=== PATIENT | female | born 1960 | race Caucasian/White ===

== ENCOUNTER 2018-07-09 16:19 | Outpatient (REF) | payer BC, SELFPAY ==
--- NOTE | 2018-07-09 15:00 | PAPFT_PTH ---
PATIENT: Mala Miles LOC: [facility] U#:[id number] AGE/SX: 57/F ROOM: RE07/09/[address]: Jessa Vazquez : 1960 BED: DIS: 07/09/2018 SPEC #: [id number] RECD: 07/10/18 12:48 STATUS: NESHA RENatalia #: [id number] ANGELA: 07/09/18 15:[address]: Jessa Vazquez DEPT: [facility] Cytology RECD BY: Spring Day ENTERED: 07/10/18 12:48 SP TYPE: PAPFT OTHR DR: Mahendra Mahmood Tissues: 1 - CX/ENDOCX FOR PAP SMEARS Procedures: PAP THIN PREP/UVM Screening Comments: [id number]
== END 2018-07-09 16:39 ==
LOC: NCHCN 16:19
PROVIDERS: PCP Internal Medicine; Visit Provider Nurse Practitioner Family
DX: Z12.4 Encounter for screening for malignant neoplasm of cervix (principal)
CPT/HCPCS: 88142

== ENCOUNTER 2020-12-03 19:23 | Emergency (ER) | payer OTHER, SELFPAY ==
[2020-12-03 19:29] VITALS: BP 200/100; PULSE 78; RESP 18; TEMP 37.3; O2SAT 100
--- NOTE | 2020-12-03 20:01 | ED.GENADUL_ITS ---
Discharge Plan Disposition Patient Disposition: HOME Condition: Stable Discharge Details Clinical Impression: COVID-19 Primary Care Provider: Mahendra Mahmood ED Provider: Spring Palafox Home Meds and New Rx's Prescriptions: No Action lisinopril 20 mg Tablet 20 mg PO DAILY RF: 0 Discharge Instructions Instructions: Viral Syndrome (ED) Additional Instructions: Continue to take your blood pressure medication as prescribed Recheck your blood pressure in 2 to 3 days Please isolate for the next 10 days After that you may follow-up with your blood pressure with your primary care physician Please return earlier with headache, shortness of breath, if your oxygen saturation dipped below 90%, or with any new or worsening complaints Discharge Data Discharge Date/Time-TO BE ENTERED AT DEPARTURE: 12/03/20 20:15 Medical Decision Making Patient is alert and oriented, of decisional capacity, pleasant in demeanor, vitals stable, mild hypertension at 167/93, likely anxiety component given recent diagnosis of COVID-19 despite being vaccinated Asymptomatic hypertension, will follow up with PCP after isolation., Should she become symptomatic, she is instructed to return immediately however oxygen saturation below 90%, I can instruct her to require a pulse oximeter unfortunately we do not have a pulse oximeter available for this patient She is instructed to require 1 With contrast patient understanding, discharged home with oxygen saturation 100%, room air, nontoxic, Medical Records Medical records reviewed: Yes I reviewed the patient's medical records. Lab Data Lab results reviewed: Yes I reviewed the patient's lab results. HPI General Mode of arrival: ambulatory . Date/Time Provider Initiated Documentation: 12/03/20 19:28 . Limitations to Documentation: no limitations . Information obtained by: patient . HPI Narrative: This 60-year-old female presents with report of elevated blood pressure. Patient denies any chest pain or shortness of breath. She states that her blood pressure was 200/100 at home which concerned her. She states she did take her lisinopril this morning. She denies any headache or visual change. She denies any additional complaints at this time. She states that she has been experiencing a runny nose which she attributed to seasonal allergies for the past 3 days but was told that at the wed she was dropped pending, a close contact of the palpable Covid in addition to 12 patient subsequently tested at urgent care and diagnosed with Covid this morning. She feeling very stressed. She checked her blood pressure after this diagnosis and states that she reassessed at approximately 6 on time and it was persistently elevated which is why she presents today. She denies any additional complaints. She is otherwise feeling at baseline. Related Data Home Medications Medication Instructions Recorded Confirmed lisinopril 20 mg PO DAILY 12/03/20 12/03/20 Allergies Allergy/AdvReac Type Severity Reaction Status Date / Time No Known Allergies Allergy Unverified 12/03/20 19:32 General Stated Complaint: GenMedical DIOR: 3 Review of Systems All systems reviewed & are unremarkable except as noted in HPI and below PFSH Social History Smoking risk assessment performed?: No Exam Const General: cooperative, comfortable and no acute distress Eyes Sclera: sclerae normal Resp Effort & Inspection: normal respiratory effort Cardio Rate: regular rate Skin General skin exam: no rashes or lesions noted Neuro General: patient alert and patient oriented x3 Course Vital Signs Vital signs: Vital Signs Temperature 37.3 C 12/03/20 19:29 Pulse 78 12/03/20 19:29 Respiratory Rate 18 12/03/20 19:29 Blood Pressure 200/100 H 12/03/20 19:29 Pulse Oximetry 100 12/03/20 19:29 Temperature 37.3 C 12/03/20 19:29 Temperature Source Temporal Artery Scan 12/03/20 19:29 Pulse 78 12/03/20 19:29 Respiratory Rate 18 12/03/20 19:29 Blood Pressure 200/100 H 12/03/20 19:29 Blood Pressure Position Sitting 12/03/20 19:29 Pulse Oximetry 100 12/03/20 19:29 Oxygen Delivery Method Room Air 12/03/20 19:29 Oxygen Flow Rate 0 12/03/20 19:29 Pain Level 0 12/03/20 19:29
[2020-12-03 20:02] VITALS: RESP 20
[2020-12-03 20:17] VITALS: BP 167/93
[2020-12-05 13:11] LABS: COVID-19 RT-PCR UVMMC Result Positive (Negative)
== END 2020-12-03 20:15 | disposition home or self-care (01) ==
PROVIDERS: Emergency Provider Physician Assistant; PCP Internal Medicine
DX: U07.1 COVID-19 (principal); I10 Essential (primary) hypertension; F44.9 Dissociative and conversion disorder, unspecified
CPT/HCPCS: 99282; U0003

== ENCOUNTER 2021-01-16 16:28 | Emergency (ER) | payer OTHER, SELFPAY ==
[2021-01-16 16:39] VITALS: BP 195/101; PULSE 86; RESP 16; O2SAT 99
--- NOTE | 2021-01-16 17:16 | NUR.NOTE ---
Nursing Note: Faxed to [facility] request for RLE venous US, pain/swelling, for tomorrow and to follow up in ED. Amada Zee
--- NOTE | 2021-01-16 17:23 | ED.GENADUL_ITS ---
Discharge Plan Disposition Patient Disposition: HOME Condition: Stable Discharge Details Clinical Impression: Leg swelling Primary Care Provider: Jessa Vazquez ED Provider: Rom Kiser Home Meds and New Rx's Prescriptions: Continued lisinopril 20 mg Tablet 20 mg PO DAILY RF: 0 Discharge Instructions Additional Instructions: While this could be swelling secondary to your knee injury back from early November, certainly cannot rule out DVT. A single dose of Lovenox has been provided now for presumptive DVT and I am setting up an ultrasound tomorrow morning. Please contact the radiology department first thing Saturday open at 7:30 AM to set up your appointment, after the ultrasound you will return to ER for ultrasound results and further care. Please watch for new or worsening symptoms and return to the ER for any concerns. Medical Decision Making 60-year-old female presents for concern of DVT. While this very well could be dependent edema secondary to an injury in the beginning November, certainly cannot rule out DVT. No signs of septic joint. No signs of cellulitis. Patient is anxious and hypertensive, reports that her blood pressure is typically elevated when getting checked at the hospital but when checking at home typically normal. She did take her lisinopril as directed today. I contacted ultrasound and unfortunately they are unable to provide ultrasound service this evening. Will provide the patient with a single dose of Lovenox now and set her up for an ultrasound tomorrow. Patient and family are comfortable with this plan and has no additional questions or concerns. Lovenox provided. Repeat blood pressure 179/105. Patient denies headache, visual changes, chest pain, shortness of breath. I filled out the paperwork for the ultrasound tomorrow morning. Strict discharge and return precautions provided. This documentation was generated using RF nanoation system, please disregard any oddities of phrase or misspellings. Medical Records Medical records reviewed: Yes I reviewed the patient's medical records. HPI General Mode of arrival: ambulatory . Date/Time Provider Initiated Documentation: 01/16/21 16:30 . Limitations to Documentation: no limitations . Information obtained by: patient and family . HPI Narrative: This is a 60-year-old female, past medical history of hypertension, presenting to the ER today for concern of a right lower extremity DVT. Patient states that in the beginning of November she stepped awkwardly down the stairs, felt a pop, but never had her knees evaluated. Subsequently since that time she has had some limping and intermittent swelling of the lower extremity. Today she actually states that she has no knee pain whatsoever. She states that when she is on her leg upright for a prolonged period of time the swelling is worse. She looks on the Internet today about her symptoms and became concerned of a DVT. She denies chest pain, shortness of breath, headache, history of DVT or PE. Denies fever, other joint pain, numbness, tingling, weakness. Related Data Home Medications Medication Instructions Recorded Confirmed lisinopril 20 mg PO DAILY 12/03/20 12/03/20 Allergies Allergy/AdvReac Type Severity Reaction Status Date / Time No Known Allergies Allergy Unverified 01/16/21 16:57 General Stated Complaint: Vascular DIOR: 3 Review of Systems Constitutional Constitutional: Denies fever(s) Cardiovascular Cardiovascular: Denies chest pain and Denies dyspnea Respiratory Respiratory: Denies dyspnea Musculoskeletal Musculoskeletal: Denies deformity, Denies arthralgias, Denies numbness, Reports stiffness and Denies tingling Integumentary/Breasts Skin/Breast: Denies erythema and Denies rash Neurologic Neurologic: Denies numbness and Denies tingling [facility] Social History Smoking/Tobacco Use Status: Never Smoking risk assessment performed?: Yes Alcohol Intake: current Alcohol Intake frequency: 0-2 drinks per day Alcohol type: wine Substance use type: does not use Additional Social history: unable to ask d/t lack of privacy Exam Const General: cooperative, healthy appearing, comfortable, no acute distress and anxious Orientation: alert and awake [facility] Head: normal to inspection, normocephalic and atraumatic Eyes General: appearance normal, both eyes and all related structures Conjunctivae: conjunctivae normal Neck Neck: normal visual inspection, trachea midline and supple Resp Effort & Inspection: normal respiratory effort and able to speak in complete sentences Auscultation: clear to auscultation bilaterally Cardio Rate: regular rate Rhythm: regular rhythm Skin General skin exam: no rashes or lesions noted Neuro General: patient alert, patient awake, patient oriented x3, moves all extremities and no focal motor deficits Cognition: normal cognition Speech: speech normal Gait: antalgic (Minimally) Motor: muscle tone normal throughout Sensory Exam: no sensory deficits noted Extrem General: full ROM and capillary refill normal Other: Right knee with full range of motion, no discomfort with varus or valgus stress, negative anterior drawer sign there is no erythema or warmth. Normal pedal pulse and capillary refill. There is diffuse 1-2 pitting edema right lower extremity from the knee inferiorly. Negative Homans no palpable cord. Psych Appearance: grossly normal Mental Status: mental status grossly normal Course Vital Signs Vital signs: Vital Signs Pulse 86 01/16/21 16:39 Respiratory Rate 16 01/16/21 16:39 Blood Pressure 195/101 H 01/16/21 16:39 Pulse Oximetry 99 01/16/21 16:39 Temperature Source Temporal Artery Scan 01/16/21 16:39 Pulse 86 01/16/21 16:39 Respiratory Rate 16 01/16/21 16:39 Respiratory Effort Non-Labored 01/16/21 16:56 Blood Pressure 195/101 H 01/16/21 16:39 Blood Pressure Position Sitting 01/16/21 16:39 Pulse Oximetry 99 01/16/21 16:39 Oxygen Delivery Method Room Air 01/16/21 16:39 Oxygen Flow Rate 0 01/16/21 16:39 Pain Level 1 01/16/21 16:39 Comment 01/16/21 16:39 PAWSS Have you Been Recently Intoxicated or Drunk Within the Last 30 days?: No Have you Ever Experienced Previous Episodes of Alcohol Withdrawal?: No Have you ever Experienced Withdrawal Seizures?: No Have you ever Experienced Delirium Tremens(DT)s?: No Have you ever undergone Alcohol Rehabilitation Treatment (i.e, inpt ot outpatient treatment programs)?: No Have you ever Experienced Blackouts?: No Have you ever Combined Alcohol with other Downers within the last 90 days?: No Have you ever Combined Alcohol with any other Substance of Abuse during the last 90 days?: No Positive Blood Alcohol level on Presentation? [PCS.BAL]: No Evidence of Increased Autonomic Activity (i.e. HR>120, tremor, sweating, agitation, nausea)?: No Result: 0
[2021-01-16] MEDS: Enoxaparin 80 MG/0.8 ML SYR SC (17:44)
[2021-01-16 17:53] VITALS: BP 179/105; PULSE 79; O2SAT 96
[2021-01-16 18:06] VITALS: BP 179/105
== END 2021-01-16 18:06 | disposition home or self-care (01) ==
PROVIDERS: Emergency Provider Physician Assistant; PCP Nurse Practitioner Family
DX: M79.89 Other specified soft tissue disorders (principal)
CPT/HCPCS: 96372; 99284; 99283; J1650

== ENCOUNTER 2021-01-17 10:58 | Emergency (ER) | payer OTHER, SELFPAY ==
[2021-01-17 11:19] VITALS: BP 168/106; PULSE 85; RESP 18; TEMP 36.9; O2SAT 99
--- NOTE | 2021-01-17 11:26 | ED.GENADUL_ITS ---
Discharge Plan Disposition Patient Disposition: HOME Condition: Stable Discharge Details Clinical Impression: Synovial cyst of popliteal space [Harper], right knee, Leg swelling Primary Care Provider: Jessa Vazquez ED Provider: Jacinta Santiago Home Meds and New Rx's Prescriptions: No Action lisinopril 20 mg Tablet 20 mg PO DAILY RF: 0 Discharge Instructions Instructions: Harper Cyst (ED) Additional Instructions: Rest, ice, compression, elevation. Use ice every 20 minutes on and off. No evidence for acute fracture on the x-rays at this time. Call and make an appointment with orthopedics within the next 1 to 2 weeks if needed. Follow up with primary care provider in 3-5 days. Return to ED sooner if any worsening or concerns. Increase oral fluids. Please take Tylenol with food every 4-6 hours as needed for pain and swelling. Stand Alone Forms: Work Release Referrals: Dany Portillo MD [ [facility] STAFF PHYSICIAN] - 1 week Jessa Vazquez [Primary Care Provider] - Return if symptoms worsen Discharge Data Discharge Date/Time-TO BE ENTERED AT DEPARTURE: 01/17/21 12:47 Medical Decision Making 60-year-old female presents to the ER status post having an venous ultrasound of her right lower extremity she presents today for results. She reports that she injured her right knee in November and felt a pop. She was not seen at that time. She noticed over the last week some increased right lower extremity swelling down to her ankle which prompted the ultrasound today. Ultrasound result shows 4.4 cm Harper's cyst and some complex fluid collection inferiorly measuring 11.6 x 2.1 x 5.4 cm which could represent ruptured Harper's cyst or hematoma. On exam she does have 1+ pitting edema noted to her right lower extremity, she is tender to her calf and in the medial joint space. She denies any other associated symptoms. At this time we will order an x-ray to rule out underlying bony abnormality or injury and referral to orthopedics EXAM: US LOWER EXTREMITY VENOUS RT CLINICAL HISTORY: PAIN, SWELLING, ? DVT. TECHNIQUE: Lower extremity venous ultrasound performed using grayscale, color- flow, and spectral Doppler analysis. COMPARISON: No exams were available for comparison FINDINGS: The common femoral, femoral and popliteal veins demonstrate normal compressibility, augmentation, and color Doppler. The posterior tibial veins are patent. No saphenous vein thrombosis or other superficial venous thrombosis is seen. There is a Harper's cyst measuring 4.4 x 0.7 x 2.8 cm. An additional collection with some increased echoes is seen inferiorly measuring 11.6 x 2.1 x 5.4 cm. It could represent a ruptured Harper's cyst or hematoma. IMPRESSION: Harper's cyst. Ruptured Harper's cyst in the calf versus hematoma.. No evidence of DVT. Discussed RICE procedures with patient for home care. X-ray ordered and will place patient on orthopedic referral. EXAM: XR KNEE RT 3V AP,LAT,DEMETRIO FINDINGS: BONES: No acute fracture is present. No bony destructive lesion is seen. Small enthesophyte quadriceps insertion. JOINTS: The knee is normally aligned. No joint effusion is seen. Moderate narrowing medial femoral tibial joint space. Mild medial femoral tibial joint space periarticular spurring. Mild spurring at the articular aspect of the patella. SOFT TISSUE: Normal. 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 No acute abnormality. X-ray as noted above. Patient given Iker wrap here in department refer to orthopedic placed on care management list for follow-up. Patient instructed and verbalized understanding HPI General Mode of arrival: ambulatory . Date/Time Provider Initiated Documentation: 01/17/21 11:25 . Limitations to Documentation: no limitations . Information obtained by: patient, RN notes reviewed and old records reviewed . HPI Narrative: 60-year-old female presents to the ER status post having an venous ultrasound of her right lower extremity she presents today for results. She reports that she injured her right knee in November and felt a pop. She was not seen at that time. She noticed over the last week some increased right lower extremity swelling down to her ankle which prompted the ultrasound today. Ultrasound result shows 4.4 cm Harper's cyst and some complex fluid collection inferiorly measuring 11.6 x 2.1 x 5.4 cm which could represent ruptured Harper's cyst or hematoma. On exam she does have 1+ pitting edema noted to her right lower extremity, she is tender to her calf and in the medial joint space. She denies any other associated symptoms. At this time we will order an x-ray to rule out underlying bony abnormality or injury and referral to orthopedics Related Data Home Medications Medication Instructions Recorded Confirmed lisinopril 20 mg PO DAILY 12/03/20 01/17/21 Allergies Allergy/AdvReac Type Severity Reaction Status Date / Time No Known Allergies Allergy Unverified 01/17/21 11:25 General Stated Complaint: Recheck DIOR: 5 Review of Systems All systems reviewed & are unremarkable except as noted in HPI and below Cardiovascular Cardiovascular: Reports leg edema Musculoskeletal Musculoskeletal: Reports as per HPI and Reports joint swelling [facility] Social History Smoking/Tobacco Use Status: Never Smoking risk assessment performed?: Yes Alcohol Intake: current Alcohol Intake frequency: 0-2 drinks per day Alcohol type: wine Substance use type: does not use Exam Extrem Right lower extremity: edema Details: pitting and 1+ and knee Details: tenderness Location: of the medial joint line and swelling; no unusual warmth Course Vital Signs Vital signs: Vital Signs Temperature 36.9 C 01/17/21 11:19 Pulse 85 01/17/21 11:19 Respiratory Rate 18 01/17/21 11:19 Blood Pressure 168/106 H 01/17/21 11:19 Pulse Oximetry 99 01/17/21 11:19 Temperature 36.9 C 01/17/21 11:19 Temperature Source Tympanic 01/17/21 11:19 Pulse 85 01/17/21 11:19 Respiratory Rate 18 01/17/21 11:19 Respiratory Effort Non-Labored 01/17/21 11:24 Blood Pressure 168/106 H 01/17/21 11:19 Blood Pressure Position Sitting 01/17/21 11:19 Pulse Oximetry 99 01/17/21 11:19 Oxygen Delivery Method Room Air 01/17/21 11:19 Oxygen Flow Rate 0 01/17/21 11:19 PAWSS Have you Been Recently Intoxicated or Drunk Within the Last 30 days?: No Have you Ever Experienced Previous Episodes of Alcohol Withdrawal?: No Have you ever Experienced Withdrawal Seizures?: No Have you ever Experienced Delirium Tremens(DT)s?: No Have you ever undergone Alcohol Rehabilitation Treatment (i.e, inpt ot outpatient treatment programs)?: No Have you ever Experienced Blackouts?: No Have you ever Combined Alcohol with other Downers within the last 90 days?: No Have you ever Combined Alcohol with any other Substance of Abuse during the last 90 days?: No Positive Blood Alcohol level on Presentation? [PCS.BAL]: No Evidence of Increased Autonomic Activity (i.e. HR>120, tremor, sweating, agitation, nausea)?: No Result: 0
--- NOTE | 2021-01-17 11:30 | DI.RAD_ITS ---
Exam(s) XR KNEE RT 3V AP,LAT,DEMETRIO EXAM: XR KNEE RT 3V AP,LAT,DEMETRIO CLINICAL HISTORY: Right knee pain, swelling, hx of bakers cyst. TECHNIQUE: 2D digital imaging was performed. COMPARISON: No exams were available for comparison FINDINGS: BONES: No acute fracture is present. No bony destructive lesion is seen. Small enthesophyte quadricep s insertion. JOINTS: The knee is normally aligned. No joint effusion is seen. Moderate narrowing medial femoral t ibial joint space. Mild medial femoral tibial joint space periarticular spurring. Mild spurring at the articular aspect of the patella. SOFT TISSUE: Normal. 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 No acute abnormality. DATA REPOSITORY: RADIATION DOSE DELIVERED:
== END 2021-01-17 12:47 | disposition home or self-care (01) ==
PROVIDERS: Emergency Provider Registered Nurse Emergency; PCP Nurse Practitioner Family
DX: M71.21 Synovial cyst of popliteal space [Baker], right knee (principal); M79.89 Other specified soft tissue disorders; Z71.2 Person consulting for explanation of examination or test findings
CPT/HCPCS: 73562; 99283

== ENCOUNTER 2021-02-24 19:12 | Outpatient (REF) | payer OTHER, SELFPAY ==
[2021-02-24 21:36] LABS: ALT 25 U/L (14-59); AST 15 U/L (15-37); Anion Gap 8.2 mmol/L (3-11); BUN 12 mg/dL (7-18); CO2 26.8 mmol/L (21.0-32.0); CREATININE 0.8 mg/dL (0.55-1.02); Calcium 9.7 mg/dL (8.5-10.1); Chloride 98 mmol/L (98-107); Glucose 94 mg/dL (74-106); Potassium 4.5 mmol/L (3.5-5.1); Sodium 133 mmol/L (136-145)
== END 2021-02-24 19:13 | disposition home or self-care (01) ==
LOC: NCHCN 19:12
PROVIDERS: PCP Nurse Practitioner Family; Visit Provider Nurse Practitioner Family
DX: E78.5 Hyperlipidemia, unspecified (principal); I10 Essential (primary) hypertension
CPT/HCPCS: 80048; 84450; 84460

== ENCOUNTER 2022-09-06 12:48 | Outpatient (REF) | payer BC, SELFPAY ==
--- NOTE | 2022-09-06 10:30 | PAPFT_PTH ---
PATIENT: Mala Miles LOC: [facility] U#:[id number] AGE/SX: 61/F ROOM: RE09/06/[address]: Jessa Vazquez : 1960 BED: DIS: 09/06/2022 SPEC #: [id number] RECD: 09/06/22 17:49 STATUS: NESHA RENatalia #: [id number] ANGELA: 09/06/22 10:[address]: Jessa Vazquez DEPT: [facility] Cytology RECD BY: Spring Day Tissues: 1 - CX/ENDOCX FOR PAP SMEARS Procedures: PAP THIN PREP/UVM Screening HPV DNA PROBE Comments: [id number]
[2022-09-06 14:47] LABS: HCT 40.5 % (36.0-46.0); HGB 13.8 g/dL (11.2-15.7); MCH 33.6 pg (27.0-33.0); MCHC 34.1 % (32.0-36.0); MCV 99 fL (80-95); MPV 9.6 fL (8.0-11.0); Platelet Count 380 10^3/uL (130-400); RBC 4.11 10^6/uL (3.93-5.22); RDW 11.9 % (11.7-14.6); RDW-SD 43.3 fL; WBC 6.18 10^3/uL (4.4-10.8)
[2022-09-06 15:13] LABS: ALT 24 U/L (14-59); AST 17 U/L (15-37); Alkaline Phosphatase 92 U/L (46-116); Anion Gap 10.3 mmol/L (3-11); BUN 6 mg/dL (7-18); Bilirubin, Total 0.9 mg/dL (0.2-1.0); CO2 26.7 mmol/L (21.0-32.0); CREATININE 0.7 mg/dL (0.55-1.02); Calcium 9.5 mg/dL (8.5-10.1); Chloride 99 mmol/L (98-107); Estimated GFR 97.12 (mL/min/1.73m2); Glucose 100 mg/dL (74-106); Potassium 4.9 mmol/L (3.5-5.1); Sodium 136 mmol/L (136-145); Total Protein 7.5 g/dL (6.4-8.2)
[2022-09-06 16:11] LABS: Calculated LDL 170 mg/dL (<100); Cholesterol 257 mg/dL (<200); HDL Cholesterol 76 mg/dL (40-60); Triglyceride 56 mg/dL (<150)
== END 2022-09-06 12:49 | disposition home or self-care (01) ==
LOC: NCHCN 12:48
PROVIDERS: PCP Nurse Practitioner Family; Visit Provider Nurse Practitioner Family
DX: Z00.00 Encounter for general adult medical examination without abnormal findings (principal); Z13.0 Encounter for screening for diseases of the blood and blood-forming organs and certain disorders involving the immune mechanism; Z13.220 Encounter for screening for lipoid disorders; Z12.4 Encounter for screening for malignant neoplasm of cervix; Z13.228 Encounter for screening for other metabolic disorders; Z11.51 Encounter for screening for human papillomavirus (HPV)
CPT/HCPCS: 80053; 80061; 85027; 88142; 87624

== ENCOUNTER 2023-09-10 15:18 | Outpatient (REF) | payer BC, SELFPAY ==
[2023-09-10 14:46] LABS: HCT 38.2 % (36.0-46.0); HGB 13.3 g/dL (11.2-15.7); MCH 34.2 pg (27.0-33.0); MCHC 34.8 % (32.0-36.0); MCV 98 fL (80-95); MPV 10.5 fL (8.0-11.0); Platelet Count 285 10^3/uL (130-400); RBC 3.89 10^6/uL (3.93-5.22); RDW 11.9 % (11.7-14.6); WBC 6.79 10^3/uL (4.4-10.8)
[2023-09-10 15:20] LABS: ALT 29 U/L (14-59); AST 20 U/L (15-37); Albumin 4.1 g/dL (3.4-5.0); Alkaline Phosphatase 73 U/L (46-116); BUN 8 mg/dL (7-18); Bilirubin, Total 1.2 mg/dL (0.2-1.0); CREATININE 0.7 mg/dL (0.55-1.02); Calcium 9.6 mg/dL (8.5-10.1); Calculated LDL 153 mg/dL (<100); Chloride 99 mmol/L (98-107); Cholesterol 249 mg/dL (<200); Estimated GFR 96.52 (mL/min/1.73m2); Glucose 93 mg/dL (74-106); HDL Cholesterol 84 mg/dL (40-60); Potassium 4.3 mmol/L (3.5-5.1); Sodium 136 mmol/L (136-145); Total Protein 7.2 g/dL (6.4-8.2); Triglyceride 64 mg/dL (<150)
== END 2023-09-10 15:19 | disposition home or self-care (01) ==
LOC: NCHCN 15:18
PROVIDERS: PCP Nurse Practitioner Family; Visit Provider Nurse Practitioner Family
DX: Z00.00 Encounter for general adult medical examination without abnormal findings (principal); Z13.0 Encounter for screening for diseases of the blood and blood-forming organs and certain disorders involving the immune mechanism; Z13.220 Encounter for screening for lipoid disorders; Z13.228 Encounter for screening for other metabolic disorders
CPT/HCPCS: 80053; 80061; 85027

== ENCOUNTER 2024-09-11 14:55 | Outpatient (REF) | payer OTHER, SELFPAY ==
[2024-09-11 21:10] LABS: HCT 36.9 % (36.0-46.0); HGB 12.7 g/dL (11.2-15.7); MCH 34.4 pg (27.0-33.0); MCHC 34.4 % (32.0-36.0); MCV 100 fL (80-95); MPV 10.2 fL (8.0-11.0); Platelet Count 297 10^3/uL (130-400); RBC 3.69 10^6/uL (3.93-5.22); RDW 11.7 % (11.7-14.6); RDW-SD 42.2 fL
[2024-09-11 21:33] LABS: ALT 41 U/L (14-59); AST 39 U/L (15-37); Albumin 4.1 g/dL (3.4-5.0); Alkaline Phosphatase 70 U/L (46-116); BUN 7 mg/dL (7-18); Bilirubin, Total 0.9 mg/dL (0.2-1.0); CREATININE 0.7 mg/dL (0.55-1.02); Calcium 9.6 mg/dL (8.5-10.1); Calculated LDL 131 mg/dL (<100); Chloride 91 mmol/L (98-107); Cholesterol 237 mg/dL (<200); Estimated GFR 95.92 (mL/min/1.73m2); Glucose 84 mg/dL (74-106); HDL Cholesterol 101 mg/dL (>or=50); Potassium 4.4 mmol/L (3.5-5.1); Sodium 128 mmol/L (136-145); Total Protein 7.3 g/dL (6.4-8.2); Triglyceride 29 mg/dL (<150)
[2024-09-14 09:45] LABS: CA 125 13 U/mL (<30)
== END 2024-09-11 14:56 | disposition home or self-care (01) ==
LOC: NCHCN 14:55
PROVIDERS: PCP Nurse Practitioner Family; Visit Provider Nurse Practitioner Family
DX: E78.5 Hyperlipidemia, unspecified (principal); Z00.00 Encounter for general adult medical examination without abnormal findings; D25.9 Leiomyoma of uterus, unspecified
CPT/HCPCS: 80053; 80061; 85027; 86304

== ENCOUNTER 2024-09-22 17:39 | Outpatient (REF) | payer OTHER, SELFPAY ==
[2024-09-22 16:46] LABS: Folate > 20.0 ng/mL (8.6-20.0); Sodium 135 mmol/L (136-145); Vitamin B12 520 pg/mL (193-986)
== END 2024-09-22 17:40 | disposition home or self-care (01) ==
LOC: NCHCN 17:39
PROVIDERS: PCP Nurse Practitioner Family; Visit Provider Nurse Practitioner Family
DX: Z00.00 Encounter for general adult medical examination without abnormal findings (principal); E87.1 Hypo-osmolality and hyponatremia
CPT/HCPCS: 82607; 82746; 84295